=== PATIENT | male | born 1945 | race Caucasian/White ===

== ENCOUNTER 2019-02-02 10:44 | Outpatient (REF) | payer MEDICARE, BC, SELFPAY ==
[2019-02-02 22:10] LABS: Abs Immature Grans 0.02 k/cumm (0.0-0.09); Absolute Basophil Count 0.05 k/cumm (0.0-0.2); Absolute Eosinophil Count 0.07 k/cumm (0.0-0.7); Absolute Lymphocyte Count 1.75 k/cumm (1.2-3.4); Absolute Monocyte Count 0.85 k/cumm (0.11-0.7); Absolute Neutrophil Count 7.71 k/cumm (1.2-6.7); Basophils % 0.5; Eosinophils % 0.7; HCT 41.4 % (40.0-50.0); HGB 14.3 g/dL (13.5-17.5); Immature Grans % 0.2; Lymphocytes % 16.7; Mean Corp. HGB Concentration 34.5 g/dL (32.0-36.0); Mean Corpuscular Hemoglobin 31.4 pg (27.0-33.0); Mean Platelet Volume 10.1 fL (8.0-11.0); Monocytes % 8.1; Neutrophils % 73.8; Platelet Count 342 x1000/uL (130-400); RBC 4.55 m/cumm (4.50-6.00); RBC Distribution Width 13.6 % (11.8-14.1); White Blood Cell Count 10.45 k/cumm (4.4-10.8)
[2019-02-02 22:14] LABS: ALT 20 U/L (12-78); AST 15 U/L (15-37); Albumin 3.3 g/dL (3.4-5.0); Alkaline Phosphatase 91 U/L (46-116); Anion Gap 12.2 mmol/L (3-11); BUN 11 mg/dL (7-18); Bilirubin, Total 0.8 mg/dL (0.2-1.0); CO2 25.8 mmol/L (21.0-32.0); CREATININE 0.88 mg/dL (0.70-1.30); Calcium 9.1 mg/dL (8.5-10.1); Chloride 103 mmol/L (98-107); Glucose 105 mg/dL (70-100); Potassium 3.4 mmol/L (3.5-5.1); Sodium 141 mmol/L (136-145); Total Protein 6.8 g/dL (6.4-8.2)
== END 2019-02-02 11:04 ==
LOC: NCHCN 10:44
PROVIDERS: Visit Provider Internal Medicine
DX: R19.7 Diarrhea, unspecified (principal)
CPT/HCPCS: 80053; 84443; 85025

== ENCOUNTER 2019-04-27 | Outpatient (REF) | payer MEDICARE, BC, SELFPAY ==
[2019-04-27 22:36] LABS: Anion Gap 9.8 mmol/L (3-11); BUN 18 mg/dL (7-18); CO2 29.2 mmol/L (21.0-32.0); Calcium 8.8 mg/dL (8.5-10.1); Calculated LDL 162 mg/dL; Chloride 100 mmol/L (98-107); Cholesterol 226 mg/dL (50-200); Glucose 111 mg/dL (70-100); HDL Cholesterol 52 mg/dL (40-60); Potassium 3.6 mmol/L (3.5-5.1); Sodium 139 mmol/L (136-145); Triglyceride 63 mg/dL (30-150)
== END 2019-04-27 00:20 ==
LOC: NCHCN
PROVIDERS: Visit Provider Internal Medicine
DX: E78.5 Hyperlipidemia, unspecified (principal); I10 Essential (primary) hypertension; Z82.49 Family history of ischemic heart disease and other diseases of the circulatory system
CPT/HCPCS: 80048; 80061

== ENCOUNTER 2020-04-18 08:03 | Outpatient (REF) | payer MEDICARE, BC, SELFPAY ==
[2020-04-18 21:41] LABS: Glucose 103 mg/dL (74-106)
[2020-04-18 21:56] LABS: Hemoglobin A1C 5.6 % (<5.7)
== END 2020-04-18 08:23 ==
LOC: NCHCN 08:03
PROVIDERS: Visit Provider Internal Medicine
DX: R73.03 Prediabetes (principal)
CPT/HCPCS: 82947; 83036

== ENCOUNTER 2020-06-25 13:26 | Outpatient (REF) | payer MEDICARE, BC, SELFPAY ==
[2020-06-25 21:05] LABS: Calculated LDL 60 mg/dL (<100); Cholesterol 120 mg/dL (<200); HDL Cholesterol 48 mg/dL (40-60); Triglyceride 60 mg/dL (<150)
== END 2020-06-25 13:46 ==
LOC: NCHCN 13:26
PROVIDERS: PCP Internal Medicine; Visit Provider Internal Medicine
DX: E78.5 Hyperlipidemia, unspecified (principal); I25.10 Atherosclerotic heart disease of native coronary artery without angina pectoris
CPT/HCPCS: 80061

== ENCOUNTER 2020-10-19 18:44 | Outpatient (REF) | payer MEDICARE, BC, SELFPAY ==
[2020-10-19 20:40] LABS: Hemoglobin A1C 6.4 % (<5.7)
[2020-10-19 20:42] LABS: Anion Gap 11.8 mmol/L (3-11); BUN 20 mg/dL (7-18); CO2 26.2 mmol/L (21.0-32.0); CREATININE 0.8 mg/dL (0.70-1.30); Calcium 8.8 mg/dL (8.5-10.1); Chloride 104 mmol/L (98-107); Glucose 98 mg/dL (74-106); Potassium 3.6 mmol/L (3.5-5.1); Sodium 142 mmol/L (136-145)
== END 2020-10-19 18:45 | disposition home or self-care (01) ==
LOC: NCHCN 18:44
PROVIDERS: PCP Internal Medicine; Visit Provider Internal Medicine
DX: R73.03 Prediabetes (principal); I10 Essential (primary) hypertension
CPT/HCPCS: 80048; 83036

== ENCOUNTER 2021-09-13 17:31 | Outpatient (REF) | payer MEDICARE, SELFPAY ==
[2021-09-15 12:15] LABS: COVID-19 RT-PCR UVMMC Result Negative (Negative)
== END 2021-09-13 17:32 | disposition home or self-care (01) ==
LOC: NCHCN 17:31
PROVIDERS: PCP Internal Medicine; Visit Provider Nurse Practitioner Family
DX: Z20.822 Contact with and (suspected) exposure to COVID-19 (principal); R42 Dizziness and giddiness
CPT/HCPCS: U0003

== ENCOUNTER 2021-10-24 16:18 | Outpatient (REF) | payer MEDICARE, SELFPAY ==
[2021-10-24 14:36] LABS: ALT 30 U/L (16-63); AST 22 U/L (15-37); Albumin 3.4 g/dL (3.4-5.0); Alkaline Phosphatase 69 U/L (46-116); Anion Gap 7.9 mmol/L (3-11); BUN 24 mg/dL (7-18); Bilirubin, Total 0.5 mg/dL (0.2-1.0); CO2 28.1 mmol/L (21.0-32.0); CREATININE 0.8 mg/dL (0.70-1.30); Calcium 8.4 mg/dL (8.5-10.1); Calculated LDL 71 mg/dL (<100); Chloride 103 mmol/L (98-107); Cholesterol 135 mg/dL (<200); Glucose 105 mg/dL (74-106); HDL Cholesterol 51 mg/dL (40-60); Potassium 3.7 mmol/L (3.5-5.1); Sodium 139 mmol/L (136-145); Total Protein 6.4 g/dL (6.4-8.2); Triglyceride 69 mg/dL (<150)
[2021-10-24 14:40] LABS: Hemoglobin A1C 6.6 % (<5.7)
== END 2021-10-24 16:19 | disposition home or self-care (01) ==
LOC: NCHCN 16:18
PROVIDERS: PCP Internal Medicine; Visit Provider Internal Medicine
DX: I10 Essential (primary) hypertension (principal); R73.03 Prediabetes; E78.5 Hyperlipidemia, unspecified
CPT/HCPCS: 80053; 80061; 83036

== ENCOUNTER 2022-06-18 14:53 | Outpatient (REF) | payer MEDICARE, SELFPAY ==
[2022-06-18 14:34] LABS: Anion Gap 7.9 mmol/L (3-11); BUN 24 mg/dL (7-18); CO2 29.1 mmol/L (21.0-32.0); CREATININE 0.9 mg/dL (0.70-1.30); Calcium 8.7 mg/dL (8.5-10.1); Calculated LDL 54 mg/dL (<100); Chloride 102 mmol/L (98-107); Cholesterol 128 mg/dL (<200); Estimated GFR 87.42 (mL/min/1.73m2); Glucose 125 mg/dL (74-106); HDL Cholesterol 62 mg/dL (40-60); Potassium 3.2 mmol/L (3.5-5.1); Sodium 139 mmol/L (136-145); Triglyceride 60 mg/dL (<150)
== END 2022-06-18 14:54 | disposition home or self-care (01) ==
LOC: NCHCN 14:53
PROVIDERS: PCP Internal Medicine; Visit Provider Internal Medicine
DX: E78.5 Hyperlipidemia, unspecified (principal)
CPT/HCPCS: 80048; 80061

== ENCOUNTER 2022-07-02 22:28 | Outpatient (REF) | payer MEDICARE, SELFPAY ==
[2022-07-02 20:30] LABS: Potassium 3.5 mmol/L (3.5-5.1)
== END 2022-07-02 22:29 | disposition home or self-care (01) ==
LOC: NCHCN 22:28
PROVIDERS: PCP Internal Medicine; Visit Provider Internal Medicine
DX: E87.6 Hypokalemia (principal)
CPT/HCPCS: 84132

== ENCOUNTER 2022-07-04 13:21 | Outpatient (REF) | payer MEDICARE, SELFPAY ==
[2022-07-04 21:14] LABS: COMMENT (LAB VIEW ONLY) 145.85 mg/dL; Microalb ug/mg Crea 46.8 ug/mg Cr
== END 2022-07-04 13:22 | disposition home or self-care (01) ==
LOC: NCHCN 13:21
PROVIDERS: PCP Internal Medicine; Visit Provider Internal Medicine
DX: E11.9 Type 2 diabetes mellitus without complications (principal)
CPT/HCPCS: 82043; 82570

== ENCOUNTER 2023-01-02 15:17 | Outpatient (REF) | payer MEDICARE, SELFPAY ==
[2023-01-02 15:53] LABS: Potassium 3.8 mmol/L (3.5-5.1)
== END 2023-01-02 15:18 | disposition home or self-care (01) ==
LOC: NCHCN 15:17
PROVIDERS: PCP Internal Medicine; Visit Provider Internal Medicine
DX: E11.9 Type 2 diabetes mellitus without complications (principal); E87.6 Hypokalemia
CPT/HCPCS: 84132

== ENCOUNTER 2023-01-05 16:45 | Outpatient (REF) | payer MEDICARE, SELFPAY ==
[2023-01-05 21:22] LABS: MCH 21.1 pg (27.0-33.0); MCHC 29.4 % (32.0-36.0); MPV 10.3 fL (8.0-11.0); Platelet Count 326 10^3/uL (130-400); RBC 4.75 10^6/uL (4.36-5.78); RDW-SD 49.6 fL; WBC 7.25 10^3/uL (4.4-10.8)
[2023-01-05 21:54] LABS: ALT 26 U/L (16-63); AST 28 U/L (15-37); Albumin 3.7 g/dL (3.4-5.0); Alkaline Phosphatase 73 U/L (46-116); Anion Gap 7.3 mmol/L (3-11); BUN 22 mg/dL (7-18); Bilirubin, Total 0.8 mg/dL (0.2-1.0); CO2 27.7 mmol/L (21.0-32.0); CREATININE 0.9 mg/dL (0.70-1.30); Calcium 8.9 mg/dL (8.5-10.1); Chloride 103 mmol/L (98-107); Estimated GFR 86.88 (mL/min/1.73m2); Glucose 104 mg/dL (74-106); Potassium 4.3 mmol/L (3.5-5.1); Sodium 138 mmol/L (136-145); TSH 2.49 uIU/mL (0.36-3.74); Total Protein 7.3 g/dL (6.4-8.2)
[2023-01-05 22:49] LABS: MCV 72 fL (80-95); RDW 19.9 % (11.8-14.1)
== END 2023-01-05 16:46 | disposition home or self-care (01) ==
LOC: NCHCN 16:45
PROVIDERS: PCP Internal Medicine; Visit Provider Internal Medicine
DX: R53.83 Other fatigue (principal); R06.09 Other forms of dyspnea
CPT/HCPCS: 80053; 85027; 84443

== ENCOUNTER 2023-01-08 09:47 | Outpatient (REF) | payer MEDICARE, SELFPAY ==
--- OUTSIDE RECORDS SUMMARY | 2023-01-08 09:49 | XMS_ITS | CCD ---
Author Name Unknown Address [address] [place] [address] [phone] Organization Unknown Address [address] [place] [address] [phone] Care Team Providers Care Glass Technician Name Role Phone ROXANN NEWBY Attending Physician [phone] ROXANN NEWBY Rounding (Secondary) Physician [phone] Vital Signs Unknown or Not Available. Allergies Unknown or Not Available. Procedures Unknown or Not Available. History of Immunizations Unknown or Not Available. Problems Unknown or Not Available. Results Unknown or Not Available. Active Medications Unknown or Not Available. Medications Administered During Visit Unknown or Not Available. 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 Discharge Instructions You were admitted to [facility] on 02/07/2022 14:39 with a principal diagnosis of Atherosclerotic heart disease of [place] coronary artery without angina pectoris You were discharged from [facility] on 02/07/2022 00:00 Should you have any questions prior to discharge, please contact a member of your healthcare team. If you have left the hospital and have any questions, please contact your primary care physician. Chief Complaint and Reason For Visit Unknown or Not Available. Function Status Unknown or Not Available. Plan of Care Unknown or Not Available. Referral/Transition of Care Unknown or Not Available.
--- OUTSIDE RECORDS SUMMARY | 2023-01-08 09:50 | XMS_ITS | CCD ---
Author Name Unknown Address [address] [place] [address] [phone] Organization Unknown Address [address] [place] [address] [phone] Care Team Providers Care Center Rep Name Role Phone LEXUS ADMAS Attending Physician [phone] Vital Signs Unknown or Not Available. Allergies Unknown or Not Available. Procedures Unknown or Not Available. History of Immunizations Unknown or Not Available. Problems Unknown or Not Available. Results Unknown or Not Available. Active Medications Unknown or Not Available. Medications Administered During Visit Unknown or Not Available. 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 Discharge Instructions You were admitted to [facility] on 05/08/2021 00:04 with a principal diagnosis of Other spondylosis with radiculopathy, lumbosacral region You were discharged from [facility] on 05/08/2021 00:04 Should you have any questions prior to [...]
[2023-01-08 14:29] LABS: Iron 133 ug/dL (65-175); Total Iron Binding Capacity 462 ug/dL (250-450); Transferrin Sat 29 % (20-55)
[2023-01-08 14:40] LABS: Ferritin 18 ng/mL (26-388)
== END 2023-01-08 09:48 | disposition home or self-care (01) ==
LOC: NCHCN 09:47
PROVIDERS: PCP Internal Medicine; Visit Provider Internal Medicine
DX: D64.9 Anemia, unspecified (principal)
CPT/HCPCS: 82728; 83540; 83550

== ENCOUNTER 2023-01-15 10:30 | Outpatient (REF) | payer MEDICARE, SELFPAY ==
[2023-01-15 14:17] LABS: Abs Immature Grans 0.01 10^3/uL (0.0-0.06); Absolute Basophil Count 0.04 10^3/uL (0.0-0.2); Absolute Eosinophil Count 0.28 10^3/uL (0.0-0.7); Absolute Lymphocyte Count 1.41 10^3/uL (1.2-3.4); Absolute Monocyte Count 0.56 10^3/uL (0.1-0.8); Absolute Neutrophil Count 3.12 10^3/uL (1.2-6.7); Basophils % 0.7; Eosinophils % 5.2; HCT 35.7 % (40.0-50.0); HGB 10.9 g/dL (13.5-17.5); Immature Grans % 0.2; MCH 22.4 pg (27.0-33.0); MCHC 30.5 % (32.0-36.0); MCV 73 fL (80-95); MPV 9.8 fL (8.0-11.0); Monocytes % 10.3; Neutrophils % 57.6; Platelet Count 278 10^3/uL (130-400); RBC 4.87 10^6/uL (4.36-5.78); RDW 22.5 % (11.8-14.1); RDW-SD 50.4 fL; WBC 5.42 10^3/uL (4.4-10.8)
[2023-01-15 14:29] LABS: ALT 30 U/L (16-63); AST 26 U/L (15-37); Albumin 3.5 g/dL (3.4-5.0); Alkaline Phosphatase 78 U/L (46-116); Anisocytosis 1+; BUN 13 mg/dL (7-18); Bilirubin, Total 0.5 mg/dL (0.2-1.0); CREATININE 0.9 mg/dL (0.70-1.30); Calcium 8.9 mg/dL (8.5-10.1); Chloride 104 mmol/L (98-107); Diff Comment RBC Morph Reviewed; Estimated GFR 86.88 (mL/min/1.73m2); Glucose 139 mg/dL (74-106); Hypochromasia 1+; Microcytosis 1+; Potassium 3.8 mmol/L (3.5-5.1); Sodium 141 mmol/L (136-145)
== END 2023-01-15 10:31 | disposition home or self-care (01) ==
LOC: NCHCN 10:30
PROVIDERS: PCP Internal Medicine; Visit Provider Internal Medicine
DX: R53.83 Other fatigue (principal)
CPT/HCPCS: 80053; 85025

== ENCOUNTER 2023-03-02 15:30 | Outpatient (REF) | payer MEDICARE, SELFPAY ==
[2023-03-02 16:44] LABS: HCT 40.9 % (40.0-50.0); HGB 13.2 g/dL (13.5-17.5); MCH 26.1 pg (27.0-33.0); MCHC 32.3 % (32.0-36.0); MCV 81 fL (80-95); MPV 10.2 fL (8.0-11.0); Platelet Count 223 10^3/uL (130-400); RBC 5.05 10^6/uL (4.36-5.78)
[2023-03-02 17:10] LABS: Ferritin 27 ng/mL (26-388)
== END 2023-03-02 15:31 | disposition home or self-care (01) ==
LOC: NCHCN 15:30
PROVIDERS: PCP Internal Medicine; Visit Provider Internal Medicine
DX: D64.9 Anemia, unspecified (principal)
CPT/HCPCS: 85027; 82728

== ENCOUNTER 2023-06-29 14:08 | Outpatient (REF) | payer MEDICARE, SELFPAY ==
[2023-06-29 14:42] LABS: HCT 41.9 % (40.0-50.0); HGB 14.8 g/dL (13.5-17.5); MCH 32.8 pg (27.0-33.0); MCHC 35.3 % (32.0-36.0); MCV 93 fL (80-95); MPV 9.9 fL (8.0-11.0); Platelet Count 226 10^3/uL (130-400); RBC 4.51 10^6/uL (4.36-5.78); RDW 13.2 % (11.8-14.1); RDW-SD 45.2 fL; WBC 4.77 10^3/uL (4.4-10.8)
[2023-06-29 15:14] LABS: Ferritin 71 ng/mL (26-388)
== END 2023-06-29 14:09 | disposition home or self-care (01) ==
LOC: NCHCN 14:08
PROVIDERS: PCP Internal Medicine; Visit Provider Internal Medicine
DX: D64.9 Anemia, unspecified (principal)
CPT/HCPCS: 85027; 82728

== ENCOUNTER 2024-03-01 14:53 | Outpatient (REF) | payer MEDICARE, SELFPAY ==
[2024-03-01 16:23] LABS: MCH 33.8 pg (27.0-33.0); MCHC 34.8 % (32.0-36.0); MCV 97 fL (80-95); Platelet Count 222 10^3/uL (130-400); RBC 4.74 10^6/uL (4.36-5.78); RDW 13.1 % (11.8-14.1); RDW-SD 46.9 fL; WBC 6.36 10^3/uL (4.4-10.8)
[2024-03-01 17:13] LABS: ALT 34 U/L (16-63); AST 30 U/L (15-37); Albumin 3.5 g/dL (3.4-5.0); Alkaline Phosphatase 80 U/L (46-116); Anion Gap 8.4 mmol/L (3-11); BUN 19 mg/dL (7-18); Bilirubin, Total 0.94 mg/dL (0.2-1.0); CO2 29.6 mmol/L (21.0-32.0); CREATININE 0.9 mg/dL (0.70-1.30); Calcium 8.9 mg/dL (8.5-10.1); Calculated LDL 64 mg/dL (<100); Chloride 104 mmol/L (98-107); Cholesterol 146 mg/dL (<200); Estimated GFR 86.34 (mL/min/1.73m2); Glucose 117 mg/dL (74-106); HDL Cholesterol 55 mg/dL (40-60); Potassium 3.5 mmol/L (3.5-5.1); Sodium 142 mmol/L (136-145); Total Protein 6.9 g/dL (6.4-8.2); Triglyceride 135 mg/dL (<150)
[2024-03-01 17:16] LABS: Hemoglobin A1C 5.8 % (<5.7)
== END 2024-03-01 14:54 | disposition home or self-care (01) ==
LOC: NCHCN 14:53
PROVIDERS: PCP Internal Medicine; Visit Provider Internal Medicine
DX: D50.9 Iron deficiency anemia, unspecified (principal); E11.9 Type 2 diabetes mellitus without complications; E78.5 Hyperlipidemia, unspecified
CPT/HCPCS: 80053; 80061; 85027; 83036

== ENCOUNTER 2024-09-08 17:47 | Outpatient (REF) | payer MEDICARE, SELFPAY ==
[2024-09-08 16:25] LABS: HGB 16.1 g/dL (13.5-17.5); MCH 33.1 pg (27.0-33.0); MCHC 34.3 % (32.0-36.0); MCV 97 fL (80-95); MPV 9.8 fL (8.0-11.0); Platelet Count 207 10^3/uL (130-400); RBC 4.87 10^6/uL (4.36-5.78); RDW 12.3 % (11.8-14.1); RDW-SD 43.8 fL; WBC 5.21 10^3/uL (4.4-10.8)
[2024-09-08 16:50] LABS: Hemoglobin A1C 5.8 % (<5.7)
[2024-09-08 17:00] LABS: Vitamin B12 640 pg/mL (193-986)
== END 2024-09-08 17:48 | disposition home or self-care (01) ==
LOC: NCHCN 17:47
PROVIDERS: PCP Internal Medicine; Visit Provider Internal Medicine
DX: E11.9 Type 2 diabetes mellitus without complications (principal); D50.9 Iron deficiency anemia, unspecified
CPT/HCPCS: 85027; 82607; 83036

== ENCOUNTER 2024-12-16 15:53 | Outpatient (REF) | payer MEDICARE, SELFPAY ==
[2024-12-16 15:48] LABS: COMMENT (LAB VIEW ONLY) 79.06 mg/dL
[2024-12-16 15:50] LABS: Microalb ug/mg Crea 107.9 ug/mg Cr
== END 2024-12-16 15:54 | disposition home or self-care (01) ==
LOC: NCHCN 15:53
PROVIDERS: PCP Internal Medicine; Visit Provider Internal Medicine
DX: E11.9 Type 2 diabetes mellitus without complications (principal)
CPT/HCPCS: 82043; 82570

== ENCOUNTER 2025-04-21 13:58 | Outpatient (REF) | payer MEDICARE, SELFPAY ==
[2025-04-21 14:38] LABS: HCT 44.0 % (40.0-50.0); HGB 15.5 g/dL (13.5-17.5); MCH 33.7 pg (27.0-33.0); MCHC 35.2 % (32.0-36.0); MCV 96 fL (80-95); MPV 9.8 fL (8.0-11.0); Platelet Count 199 10^3/uL (130-400); RBC 4.60 10^6/uL (4.36-5.78); RDW 12.6 % (11.8-14.1); RDW-SD 44.1 fL; WBC 4.98 10^3/uL (4.4-10.8)
[2025-04-21 14:51] LABS: ALT 37 U/L (16-63); AST 36 U/L (15-37); Albumin 3.5 g/dL (3.4-5.0); Alkaline Phosphatase 79 U/L (46-116); Anion Gap 7.3 mmol/L (3-11); BUN 19 mg/dL (7-18); Bilirubin, Total 1.0 mg/dL (0.2-1.0); CO2 28.7 mmol/L (21.0-32.0); Calcium 9.2 mg/dL (8.5-10.1); Calculated LDL 75 mg/dL (<100); Chloride 105 mmol/L (98-107); Cholesterol 146 mg/dL (<200); Estimated GFR 92.57 (mL/min/1.73m2); Glucose 130 mg/dL (74-106); HDL Cholesterol 51 mg/dL (>or=40); Potassium 3.9 mmol/L (3.5-5.1); Sodium 141 mmol/L (136-145); Total Protein 6.8 g/dL (6.4-8.2); Triglyceride 102 mg/dL (<150)
[2025-04-21 15:11] LABS: Hemoglobin A1C 5.9 % (<5.7)
== END 2025-04-21 13:59 | disposition home or self-care (01) ==
LOC: NCHCN 13:58
PROVIDERS: PCP Internal Medicine; Visit Provider Internal Medicine
DX: I25.10 Atherosclerotic heart disease of native coronary artery without angina pectoris (principal); E11.9 Type 2 diabetes mellitus without complications
CPT/HCPCS: 80053; 80061; 85027; 83036